=== PATIENT | male | born 1970 | race Caucasian/White ===

== ENCOUNTER 2018-06-26 16:24 | Emergency (ER) | payer MEDICAID ==
[~2018-06-26] VITALS: Ht 170.2 cm; Wt 76.2 kg
[~2018-06-26 16:24] MED LIST: ADALAT CC30 MG PO; ATIVAN1 MG PO; BACLOFEN10 MG PO; CYCLOBENZAPRINE10 M3 PO; ENALAPRIL20 M1 PO; PROAIR HFA0.09 MG/A1 IH; TRAMADOL50 M1 PO
[2018-06-26 17:35] VITALS: BP 128/81
[2018-06-26 17:38] LABS: BASOPHIL % 0.2 % (0-2); PLATELET COUNT 324 x10^3mcL (130-400); RED CELL DISTRIBUTION WIDTH 13.6 % (11.5-14.5)
[2018-06-26 17:55] LABS: CARBON DIOXIDE 29.2 mmol/L (21-32); CHLORIDE SERUM 100 mmol/L (98-107); CREATININE SERUM 1.2 mg/dL (0.7-1.3); GFR1 > 60 mL/min; GLUCOSE SERUM 117 mg/dL (74-106); POTASSIUM SERUM 3.5 mmol/L (3.5-5.1); SODIUM SERUM 136 mmol/L (136-145)
[2018-06-26 18:00] LABS: ALBUMIN 3.7 g/dL (3.4-5.0); ALKALINE PHOSPHATASE 109 U/L (46-116); ALT/SGPT 30 U/L (16-63); AST/SGOT 11 U/L (15-37); BILIRUBIN TOTAL 0.5 mg/dL (0.20-1.00); TOTAL PROTEIN, SERUM 7.3 g/dL (6.4-8.2)
== END 2018-06-26 18:41 | disposition home or self-care (01) ==
LOC: ED 16:24
PROVIDERS: Emergency Medicine
DX: J45.909 Unspecified asthma, uncomplicated (principal); I10 Essential (primary) hypertension; Z88.0 Allergy status to penicillin; Z86.73 Personal history of transient ischemic attack (TIA), and cerebral infarction without residual deficits
CPT/HCPCS: J7030; Q0092

== ENCOUNTER 2018-08-05 12:27 | Emergency (ER) | payer MEDICAID ==
[~2018-08-05] VITALS: Ht 170.2 cm; Wt 76.2 kg
[2018-08-05 13:30] VITALS: Ht 170.2 cm; Wt 76.2 kg
[2018-08-05 17:48] VITALS: BP 147/80
== END 2018-08-05 17:48 | disposition home or self-care (01) ==
LOC: ED 12:27
DX: S33.5XXA Sprain of ligaments of lumbar spine, initial encounter (principal); J45.909 Unspecified asthma, uncomplicated; I10 Essential (primary) hypertension; Z88.0 Allergy status to penicillin; Z86.73 Personal history of transient ischemic attack (TIA), and cerebral infarction without residual deficits; X50.9XXA Other and unspecified overexertion or strenuous movements or postures, initial encounter; Y93.89 Activity, other specified; Y92.89 Other specified places as the place of occurrence of the external cause; Y99.8 Other external cause status
CPT/HCPCS: J1885

== ENCOUNTER 2018-11-09 12:00 | Emergency (ER) | payer MEDICAID ==
[~2018-11-09] VITALS: Ht 170.2 cm; Wt 77.8 kg
[2018-11-09 12:06] VITALS: Ht 170.2 cm; Wt 77.8 kg
[2018-11-09 12:47] VITALS: BP 124/86
== END 2018-11-09 12:47 | disposition home or self-care (01) ==
LOC: ED 12:00
DX: I10 Essential (primary) hypertension (principal); J45.909 Unspecified asthma, uncomplicated; L40.9 Psoriasis, unspecified; Z76.0 Encounter for issue of repeat prescription; Z86.73 Personal history of transient ischemic attack (TIA), and cerebral infarction without residual deficits; Z98.890 Other specified postprocedural states; Z88.0 Allergy status to penicillin